=== PATIENT | female | born 1955 | race Caucasian/White ===

== ENCOUNTER 2017-03-08 01:18 | Emergency (ER) | payer OTHER ==
[~2017-03-08] VITALS: Ht 172.7 cm; Wt 129.6 kg
[~2017-03-08 01:18] MED LIST: ADVIL LIQUI-GE200 MG PO; CIPRO750 MG PO; CLEOCIN300 MG PO; EFFEXOR XR37.5 MG PO; HAIR, SKIN & N1 EAC2 PO
[2017-03-08 01:55] LABS: BASOPHIL COUNT 0.1 K/uL (0-0.1); EOSINOPHIL (%) 5.3 % (0-5); EOSINOPHIL COUNT 0.4 K/uL (0-0.3); HEMATOCRIT 42.2 % (36.0-46.0); IMMATURE GRANULOCYTE (%) 0.3 % (0.0-0.7); INSTRUMENT ABS NEUTROPHIL CT 3.8 K/uL; LYMPHOCYTE COUNT 2.1 K/uL (1.0-2.8); MCH 27.4 PG (29.0-34.0); MCHC 31.5 G/DL (30.0-36.0); MONOCYTE (%) 8.7 % (3-12); MONOCYTE COUNT 0.6 K/uL (0-0.8); NEUTROPHIL (%) 54.3 % (45-76); NEUTROPHIL COUNT 3.8 K/uL (1.8-6.4); PLATELET COUNT 209 K/uL (156-360); RBC DIS.WIDTH-CV 15.3 % (11.8-14.6); RBC DIS.WIDTH-SD 48.7 % (39-53); RED BLOOD COUNT 4.85 M/uL (3.80-5.20); WHITE BLOOD COUNT 6.9 K/uL (4.1-10.2)
[2017-03-08 02:01] LABS: PROTHROMBIN TIME 11.6 SEC (10.2-12.9)
[2017-03-08 02:04] LABS: PTT 31.1 SEC (25-37)
[2017-03-08 02:07] LABS: CHLORIDE 108 mEq/L (99-109); POTASSIUM 4.3 mEq/L (3.7-5.4); SODIUM 143 mEq/L (136-147)
[2017-03-08 02:08] LABS: GLUCOSE 103 mg/dL (70-99)
[2017-03-08 02:10] LABS: ANION GAP 10 MEQ/L (2-14)
[2017-03-08 02:13] LABS: GFR ESTIMATE (CALCULATED) > 59 mL/min/; UREA NITROGEN (BUN) 23 mg/dL (9-23)
[2017-03-08 02:19] LABS: TROP-I INTERPRETATION NEGATIVE; TROPONIN-I < 0.01 ng/mL (0.0-0.30)
[2017-03-08 03:29] LABS: TROP-I INTERPRETATION NEGATIVE; TROPONIN-I < 0.01 ng/mL (0.0-0.30)
[2017-03-08 03:47] VITALS: BP 185/95
== END 2017-03-08 03:48 | disposition home or self-care (01) ==
LOC: EME 01:18
PROVIDERS: Emergency Medicine
DX: R68.84 Jaw pain (principal); R51 Headache; F32.9 Major depressive disorder, single episode, unspecified; F41.9 Anxiety disorder, unspecified; Z91.040 Latex allergy status; Z88.1 Allergy status to other antibiotic agents
CPT/HCPCS: 71010; 80048; 84484; 85025; 85610; 85730; 93005; 99281; 99284

== ENCOUNTER 2017-10-23 15:20 | Inpatient (IN) | payer OTHER ==
[~2017-10-23] VITALS: Ht 172.7 cm; Wt 124.0 kg
[2017-10-23 17:45] LABS: BASOPHIL (%) 0.4 % (0-1); BASOPHIL COUNT 0.1 K/uL (0-0.1); EOSINOPHIL (%) 0.5 % (0-5); EOSINOPHIL COUNT 0.1 K/uL (0-0.3); HEMATOCRIT 42.4 % (36.0-46.0); IMMATURE GRANULOCYTE (%) 0.4 % (0.0-0.7); LYMPHOCYTE (%) 9.4 % (15-42); LYMPHOCYTE COUNT 1.1 K/uL (1.0-2.8); MCH 29.5 PG (29.0-34.0); MCV 89.5 FL (83-99); MONOCYTE (%) 4.6 % (3-12); MONOCYTE COUNT 0.5 K/uL (0-0.8); NEUTROPHIL (%) 84.7 % (45-76); NEUTROPHIL COUNT 9.5 K/uL (1.8-6.4); PLATELET COUNT 179 K/uL (156-360); RBC DIS.WIDTH-CV 13.1 % (11.8-14.6); RBC DIS.WIDTH-SD 43.1 % (39-53); RED BLOOD COUNT 4.74 M/uL (3.80-5.20); WHITE BLOOD COUNT 11.3 K/uL (4.1-10.2)
[2017-10-23 17:55] LABS: ALBUMIN 4.1 g/dL (3.2-4.8); CHLORIDE 108 mEq/L (99-109); POTASSIUM 4.5 mEq/L (3.7-5.4); SODIUM 143 mEq/L (136-147)
[2017-10-23 17:57] LABS: GLUCOSE 118 mg/dL (70-99)
[2017-10-23 17:58] LABS: TOTAL PROTEIN 7.2 g/dL (6.4-8.3)
[2017-10-23 17:59] LABS: TOTAL BILIRUBIN 0.4 mg/dL (0.0-1.0)
[2017-10-23 18:01] LABS: ALKALINE PHOSPHATASE 62 IU/L (3-129); CREATININE 0.7 mg/dL (0.6-1.3); GFR ESTIMATE (CALCULATED) > 59 mL/min/
[2017-10-23 18:02] LABS: UREA NITROGEN (BUN) 18 mg/dL (9-23)
[2017-10-23 18:03] LABS: AST (GOT) 15 IU/L (2-34)
[2017-10-23 18:04] LABS: ALT (GPT) 14 IU/L (3-49)
[2017-10-23 18:05] LABS: LIPASE 19 U/L (1.0-51.0)
[2017-10-23 18:55] LABS: APPEARANCE CLEAR ((CLEAR)); BILIRUBIN NEGATIVE; BLOOD NEGATIVE; COLOR YELLOW ((YELLOW)); GLUCOSE (STRIP) NEGATIVE; KETONES 20; LEUKOCYTES NEGATIVE; NITRITE NEGATIVE; PROTEIN (STRIP) 30; SPECIFIC GRAVITY 1.024 (1.000-1.030)
[2017-10-23] MEDS ORDERED: METRONIDAZOLE45 GM TP (20:55)
[2017-10-23] MEDS ORDERED: REFRESH TEARS15 ML BOTH EYES (20:55)
[2017-10-24] VITALS (7 sets, daily range): BP systolic 103–141; BP diastolic 57–73
[2017-10-24 06:16] LABS: HEMATOCRIT 41.9 % (36.0-46.0); HEMOGLOBIN 13.3 G/DL (11.9-15.5); MCH 28.9 PG (29.0-34.0); MCHC 31.7 G/DL (30.0-36.0); MCV 90.9 FL (83-99); PLATELET COUNT 165 K/uL (156-360); RBC DIS.WIDTH-CV 13.2 % (11.8-14.6); RBC DIS.WIDTH-SD 44.1 % (39-53); RED BLOOD COUNT 4.61 M/uL (3.80-5.20); WHITE BLOOD COUNT 9.9 K/uL (4.1-10.2)
[2017-10-24 07:35] LABS: CHLORIDE 109 MEQ/L (99-109); CREATININE 0.7 MG/DL (0.6-1.3); GFR ESTIMATE (CALCULATED) > 59 mL/min/; GLUCOSE 138 mg/dL (70-99); MAGNESIUM 1.7 mg/dl (1.3-2.7); PHOSPHORUS 3.2 mg/dL (2.5-4.9); POTASSIUM 4.3 MEQ/L (3.7-5.4); SODIUM 142 MEQ/L (136-147); UREA NITROGEN (BUN) 14 mg/dL (9-23)
[2017-10-25 03:35] VITALS: BP 127/70
[2017-10-25 08:09] VITALS: BP 107/59
[2017-10-25] MEDS ORDERED: ENDOCET 5-3251 EACH PO (11:18)
[2017-10-25 11:44] VITALS: BP 131/69
== END 2017-10-25 16:19 | disposition home or self-care (01) | DRG 336 ==
LOC: EME 15:20 → 2EASTP 21:59 → EDOF 21:59 → ENRESERV 10-24 03:38 → EDOF 10-24 03:46 → 2EAST 10-24 03:46 → ENRESERV 10-24 03:52 → 2EASTP 10-24 04:25
PROVIDERS: Emergency Medicine; Surgery
DX: K43.0 Incisional hernia with obstruction, without gangrene (principal); K66.0 Peritoneal adhesions (postprocedural) (postinfection); F32.9 Major depressive disorder, single episode, unspecified; F41.9 Anxiety disorder, unspecified; K57.30 Diverticulosis of large intestine without perforation or abscess without bleeding; E66.01 Morbid (severe) obesity due to excess calories; Z96.653 Presence of artificial knee joint, bilateral; K80.20 Calculus of gallbladder without cholecystitis without obstruction; L71.9 Rosacea, unspecified; N20.0 Calculus of kidney; Z90.710 Acquired absence of both cervix and uterus; Z68.41 Body mass index [BMI] 40.0-44.9, adult
CPT/HCPCS: 74177; 80048; 80053; 81003; 83605; 83690; 83735; 84100; 85025; 85027; 88302; 88305; 93005; 97530 GO; 99281; 99285; C1781; J0330; J1100; J1170; J2405; J3010; J3370; J7120; S0073